=== PATIENT | female | born 1980 | race American Indian/Alaskan Native ===

== ENCOUNTER 2018-11-10 10:44 | Emergency (ER) | payer MEDICARE, MEDICAID ==
[2018-11-10 11:23] VITALS: BP 117/74
--- NOTE | 2018-11-10 11:25 | EDM.PDOC ---
ED HPI GENERAL MEDICAL PROBLEM - General Chief Complaint: ENT Problem Stated Complaint: HEAD FEELS LIKE A BALOON Time Seen by Provider: 11/10/18 11:15 Source of Information: Reports: Patient History Limitations: Reports: No Limitations - History of Present Illness INITIAL COMMENTS - FREE TEXT/NARRATIVE: Patient comes emergency department today with complaints of a runny nose headache that feels like pressure. This has been going on since Friday. Since Friday she has had a clear draining runny nose. Some sinus congestion. No fever no chills. No dental pain. She has a generalized fullness sensation throughout her head. No fever no chills. She also has itchy scratchy throat. No loss of voice. No shortness of breath difficulty breathing. No chest pain. No difficulty swallowing. No rash or body aches. - Related Data Allergies Allergy/AdvReac Type Severity Reaction Status Date / Time strawberries Allergy Rash Uncoded 11/10/18 11:11 Home Meds: Home Meds Multivitamin [Multivitamins] 1 each PO DAILY 10/29/13 [History] FLUoxetine HCl [Fluoxetine HCl] 20 mg PO DAILY 02/28/16 [History] Acyclovir 800 mg PO ASDIRECTED 07/30/18 [History] Past Medical History - Past Health History Medical/Surgical History: Denies Medical/Surgical History HEENT History: Reports: None Cardiovascular History: Reports: None Respiratory History: Reports: None Gastrointestinal History: Reports: GERD Genitourinary History: Reports: None [employer] History: Reports: None Musculoskeletal History: Reports: None Neurological History: Reports: None Psychiatric History: Reports: Anxiety, Depression, Developmental Delay, Learning Disability Endocrine/Metabolic History: Reports: None Hematologic History: Reports: None Immunologic History: Reports: None Oncologic (Cancer) History: Reports: None Dermatologic History: Reports: None - Infectious Disease History Infectious Disease History: Reports: Herpes - Past Surgical History Female Surgical History: Reports: None Social & Family History - Family History Family Medical History: Noncontributory - Caffeine Use Caffeine Use: Reports: Soda - Living Situation & Occupation Living situation: Reports: with Family ED ROS ENT - Review of Systems Review Of Systems: ROS reveals no pertinent complaints other than HPI. ED EXAM, ENT - Physical Exam Exam: See Below Exam Limited By: No Limitations General Appearance: Alert, WD/WN Eye Exam: Bilateral Eye: EOMI, Normal Inspection, PERRL Ears: Normal External Exam, Hearing Grossly Normal, Normal TMs, Cerumen Impaction (Bilateral although I am able to see a small amount of the TMs which are pearly-gonzales without erythema or effusion.). No: Mastoid Swelling, Mastoid Tenderness, TM Erythema Nose: No Blood, Clear Rhinorrhea, Injected Turbinates (Bilaterally). No: Nasal Deformity Mouth/Throat: Normal Inspection, Normal Gums, Normal Lips, Normal Oropharynx, Normal Teeth. No: Drooling, Dry Mucous Membrane, Hoarse Voice, Lip Ulcers, Muffled Voice, Oral Ulcers, Perioral Cyanosis, Throat Swelling, Tongue Swelling , Tonsillar Erythema, Tonsillar Exudates, Tonsillar Swelling, Uvular Deviation, Uvular Edema Head: Atraumatic, Normocephalic Neck: Normal Inspection. No: Lymphadenopathy (L), Lymphadenopathy (R) Respiratory/Chest: No Respiratory Distress, Lungs Clear, Normal Breath Sounds, No Accessory Muscle Use Cardiovascular: Normal Peripheral Pulses, Regular Rate, Rhythm Extremities: Normal Inspection, Normal Capillary Refill Neurological: Alert, Oriented, CN II-XII Intact, Normal Cognition, No Motor/ Sensory Deficits Psychiatric: Normal Affect, Normal Mood Skin: Warm, Dry, Intact, Normal Color, No Rash Departure - Departure Time of Disposition: 11:23 Disposition: Home, Self-Care 01 Clinical Impression: Common cold - Discharge Information Instructions: Sinus Rinse, [id number], Viral Respiratory Infection, Easy-To- Read Additional Instructions: Zyrtec daily until symptom resolution. Tylenol ibuprofen as needed for headache. Nasal saline rinse twice daily 10 minutes later Fluticasone nasal spray 2 sprays each nostril once a day for 7 days then 1 spray each nostril once a day until symptom resolution. Return to the ED if new or worsening symptoms Follow up with PCP in the next week if not improving. - Assessment/Plan Assessment:: Common cold Plan: Zyrtec daily until symptom resolution. Tylenol ibuprofen as needed for headache. Nasal saline rinse twice daily 10 minutes later Fluticasone nasal spray 2 sprays each nostril once a day for 7 days then 1 spray each nostril once a day until symptom resolution. Return to the ED if new or worsening symptoms Follow up with PCP in the next week if not improving.
== END 2018-11-10 11:36 | disposition home or self-care (01) ==
LOC: DL.ED 10:44
DX: J00 Acute nasopharyngitis [common cold] (principal); F41.9 Anxiety disorder, unspecified; F32.9 Major depressive disorder, single episode, unspecified; Z79.899 Other long term (current) drug therapy; Z91.018 Allergy to other foods
CPT/HCPCS: 99283

== ENCOUNTER 2019-02-20 10:09 | Emergency (ER) | payer MEDICARE, MEDICAID ==
[2019-02-20 10:34] VITALS: BP 127/55
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
== END 2019-02-20 11:06 | disposition home or self-care (01) ==
LOC: DL.ED 10:09
DX: A60.00 Herpesviral infection of urogenital system, unspecified (principal); F41.9 Anxiety disorder, unspecified; F32.9 Major depressive disorder, single episode, unspecified; Z79.899 Other long term (current) drug therapy; Z91.018 Allergy to other foods
CPT/HCPCS: 99282

== ENCOUNTER 2019-02-27 18:34 | Emergency (ER) | payer MEDICARE, MEDICAID ==
[2019-02-27 19:19] VITALS: BP 120/69
--- NOTE | 2019-02-27 19:36 | EDM.PDOC ---
ED HPI GENERAL MEDICAL PROBLEM - General Chief Complaint: Skin Complaint Stated Complaint: ITCHY MOUTH Time Seen by Provider: 02/27/19 19:30 Source of Information: Reports: Patient History Limitations: Reports: No Limitations - History of Present Illness INITIAL COMMENTS - FREE TEXT/NARRATIVE: c/o itchy chin but can't see anything on it. worried it could get bad. also worried about a sore on her buttocks from last week. being Tx with Rx for it. - Related Data Allergies Allergy/AdvReac Type Severity Reaction Status Date / Time strawberries Allergy Rash Uncoded 02/27/19 19:21 Home Meds: Home Meds Multivitamin [Multivitamins] 1 each PO DAILY 10/29/13 [History] FLUoxetine HCl [Fluoxetine HCl] 20 mg PO DAILY 02/28/16 [History] Acyclovir 800 mg PO ASDIRECTED 07/30/18 [History] Past Medical History - Past Health History Medical/Surgical History: Denies Medical/Surgical History HEENT History: Reports: None Cardiovascular History: Reports: None Respiratory History: Reports: None Gastrointestinal History: Reports: GERD Genitourinary History: Reports: None [employer]ET[employer] History: Reports: None Musculoskeletal History: Reports: None Neurological History: Reports: None Psychiatric History: Reports: Anxiety, Depression, Developmental Delay, Learning Disability Endocrine/Metabolic History: Reports: None Hematologic History: Reports: None Immunologic History: Reports: None Oncologic (Cancer) History: Reports: None Dermatologic History: Reports: None - Infectious Disease History Infectious Disease History: Reports: Herpes - Past Surgical History Female Surgical History: Reports: None Social & Family History - Family History Family Medical History: Noncontributory - Tobacco Use Smoking Status *Q: Never Smoker - Caffeine Use Caffeine Use: Reports: Soda - Recreational Drug Use Recreational Drug Use: No - Living Situation & Occupation Living situation: Reports: with Family ED ROS GENERAL - Review of Systems Review Of Systems: ROS reveals no pertinent complaints other than HPI. ED EXAM, SKIN/RASH Exam: See Below Exam Limited By: No Limitations General Appearance: Alert, WD/WN, Anxious Ears: Hearing Grossly Normal Throat/Mouth: Normal Voice, No Airway Compromise, Other (chin without notable sores/lesions/erythema/inflammation) Head: Atraumatic Neck: Supple, Non-Tender Respiratory/Chest: No Respiratory Distress Cardiovascular: Regular Rate, Rhythm GI/Abdominal: Soft, Non-Tender (Female) Exam: Other (left buttock bandaid covering healed lesion without cellulitis/lymphangitis/drainage) Neurological: Alert, Oriented, Normal Cognition, Normal Gait, No Motor/Sensory Deficits Psychiatric: Anxious Skin: Warm, Dry, Normal Color Location, Skin: Face, Other (buttocks) Characteristics: Other (normal skin) Associated features: No: Warmth, Tenderness, Swelling, Induration, Scaling, Lymphangitis, Inflammation, Crusting, Weeping, Rough Lymphatic: No Adenopathy Course - Vital Signs Last Recorded V/S: Last Vital Signs Temp 36.7 C 02/27/19 19:17 Pulse 98 02/27/19 19:17 Resp 16 02/27/19 19:17 BP 120/69 02/27/19 19:17 Pulse Ox 100 02/27/19 19:17 Departure - Departure Time of Disposition: 19:34 Disposition: Home, Self-Care 01 Condition: Good Clinical Impression: Anxiety about health - Discharge Information Instructions: Pruritus Additional Instructions: 1) don't scratch chin 2) mat take BENADRYL 25MG morning and night time for itch 3) follow up at clinic
== END 2019-02-27 19:46 | disposition home or self-care (01) ==
LOC: DL.ED 18:34
DX: F41.9 Anxiety disorder, unspecified (principal); Z79.899 Other long term (current) drug therapy; Z91.018 Allergy to other foods
CPT/HCPCS: 99282